=== PATIENT | male | born 1975 | race Hispanic/Latino ===

== ENCOUNTER 2024-07-13 09:12 | Emergency (ER) | payer SELFPAY ==
[~2024-07-13] VITALS: Ht 167.6 cm; Wt 80.7 kg
[2024-07-13 09:55] LABS: BASOPHILS # (AUTO) 0.1 (0.0-0.1); BASOPHILS % 0.3 % (0.0-1.0); EOSINOPHILS # (AUTO) 0.6 (0.0-0.4); HEMATOCRIT 44.1 % (38.2-49.6); HEMOGLOBIN 15.2 g/dL (14.0-18.0); LYMPHOCYTES # (AUTO) 1.4 (1.0-3.2); LYMPHOCYTES % 7.2 % (18.0-39.1); MEAN CORPUSCULAR HGB CONC 34.5 g/dL (31-35); MEAN CORPUSCULAR VOLUME 98.7 fL (81-99); MONOCYTES # (AUTO) 1.2 (0.2-0.8); MONOCYTES % 6.2 % (4.4-11.3); NEUTROPHILS # (AUTO) 16.1 (2.1-6.9); NEUTROPHILS % 82.8 % (38.7-80.0); PLATELET COUNT 366 x10e3/uL (140-360); RED BLOOD COUNT 4.47 x10e6/uL (4.3-5.7); RED CELL DISTRIBUTION WIDTH 11.9 % (11.7-14.4); WHITE BLOOD COUNT 19.42 x10e3/uL (4.8-10.8)
[2024-07-13] MEDS: SODIUM CHLORIDE 0.9% 1000ML 1,000 ML IV SCH (10:00)
[2024-07-13 10:33] LABS: ANION GAP 15.4 mmol/L (8-16); CALCIUM 9.2 mg/dL (8.4-10.2); CREATININE, SERUM 0.74 mg/dL (0.72-1.25); POTASSIUM 4.4 mmol/L (3.5-5.1)
[2024-07-13] MEDS ORDERED: AMOX TR-K CLV1 EAC2 PO (10:38)
[2024-07-13 11:10] VITALS: PULSE 84; RESP 16; TEMP 98.1; O2SAT 99
== END 2024-07-13 12:33 | disposition home or self-care (01) ==
LOC: ER 09:35
DX: R04.0 Epistaxis (principal); J32.9 Chronic sinusitis, unspecified
CPT/HCPCS: 36415; 80048; 85025; 99283; J7030